=== PATIENT | female | born 1975 | race Hispanic/Latino ===

== ENCOUNTER 2017-09-07 04:12 | Emergency (ER) | payer SELFPAY ==
[~2017-09-07] VITALS: Ht 165.1 cm; Wt 142.5 kg
[2017-09-07 05:38] LABS: CHLORIDE 104 mEq/L (99-109); POTASSIUM 3.8 mEq/L (3.7-5.4); SODIUM 140 mEq/L (136-147)
[2017-09-07 05:39] LABS: HEMATOCRIT 42.9 % (36.0-46.0); MCH 27.5 PG (29.0-34.0); MCHC 33.1 G/DL (30.0-36.0); MEAN PLAT.VOLUME 11.5 uM^3 (9.5-12.4); PLATELET COUNT 245 K/uL (156-360); RBC DIS.WIDTH-CV 12.7 % (11.8-14.6); RBC DIS.WIDTH-SD 38.3 % (39-53); RED BLOOD COUNT 5.17 M/uL (3.80-5.20); WHITE BLOOD COUNT 10.1 K/uL (4.1-10.2)
[2017-09-07 05:40] LABS: GLUCOSE 109 mg/dL (70-99)
[2017-09-07 05:42] LABS: ANION GAP 11 MEQ/L (2-14)
[2017-09-07 05:45] LABS: UREA NITROGEN (BUN) 9 mg/dL (9-23)
[2017-09-07] MEDS ORDERED: PREDNISONE20 MG PO (05:48)
[2017-09-07] MEDS ORDERED: VALTREX1000 MG PO (05:48)
[2017-09-07 05:53] LABS: GFR ESTIMATE (CALCULATED) > 59 mL/min/
[2017-09-07 06:02] VITALS: BP 120/67
[2017-09-09 09:08] LABS: LYME DISEASE SEROLOGY SCREEN NEGATIVE (NEGATIVE)
== END 2017-09-07 06:10 | disposition home or self-care (01) ==
LOC: EME 04:12
PROVIDERS: Emergency Medicine
DX: G51.0 Bell's palsy (principal)
CPT/HCPCS: 70450; 80048; 85027; 86618; 99281; 99284; J7512